=== PATIENT | female | born 1995 | race Caucasian/White ===

== ENCOUNTER 2022-08-29 11:02 | Outpatient (CLI) | payer OTHER, SELFPAY ==
--- NOTE | 2022-08-29 11:15 | CRLHL7_ITS ---
For Patients: As a result of the Cures Act, medical imaging exams and procedure reports are released immediately into your electronic medical record. You may view this report before your referring provider. If you have questions, please contact your health care provider. RIGHT BREAST ULTRASOUND CLINICAL HISTORY: RIGHT breast lump. COMPARISON: None. TECHNIQUE: Real-time ultrasound imaging of RIGHT breast with imaging documentation. FINDINGS: Targeted sonogram to the area of concern in the RIGHT breast at 12 o`clock 4 cm from the nipple was performed. Dense fibroglandular tissue is present. At 10 o`clock 5 cm from the nipple, there is a benign circumscribed fibroadenoma with increase through-transmission measuring 9 x 4 x 8 mm. IMPRESSION: Normal dense fibroglandular tissue and incidental fibroadenoma. No suspicious findings. RECOMMENDATIONS: Clinical follow-up. Age-appropriate screening mammography. BI-RADS Category 2. Benign A lay language report of this examination will be provided to the patient. Dictated by Esdras Watt MD @ 08/29/2022 12:29:27 PM [email or web address] RD/Dictated by: Esdras Watt MD @ 08/29/2022 12:29:00 PM (Electronically Signed)
== END 2022-08-29 11:03 | disposition home or self-care (01) ==
LOC: US 11:06
PROVIDERS: Visit Provider Obstetrics & Gynecology
DX: N63.10 Unspecified lump in the right breast, unspecified quadrant (principal); N64.4 Mastodynia
CPT/HCPCS: 76642

== ENCOUNTER 2022-09-14 08:46 | Outpatient (CLI) | payer OTHER, SELFPAY ==
[2022-09-14 10:50] LABS: Cholesterol* 202 mg/dL (90-199)
[2022-09-14 10:51] LABS: HDL Cholesterol* 77 mg/dL (>=50); LDL Cholesterol Calculated 110 mg/dL (<100); Triglycerides* 76 mg/dL (40-149)
== END 2022-09-14 08:47 | disposition home or self-care (01) ==
PROVIDERS: Visit Provider Obstetrics & Gynecology
DX: Z01.419 Encounter for gynecological examination (general) (routine) without abnormal findings (principal); Z13.6 Encounter for screening for cardiovascular disorders
CPT/HCPCS: 80061

== ENCOUNTER 2022-09-18 07:10 | Outpatient (CLI) | payer OTHER, SELFPAY ==
--- NOTE | 2022-09-18 07:15 | CRLHL7_ITS ---
For Patients: As a result of the Century Cures Act, medical imaging exams and procedure reports are released immediately into your electronic medical record. You may view this report before your referring provider. If you have questions, please contact your health care provider. INDICATION: Missing IUD strings TECHNIQUE: Ultrasound pelvis transvaginal only COMPARISON: None FINDINGS: Uterus: 8.3 centimeter x 2.9 centimeter x 5.2 centimeter. Normal echotexture of the myometrium. No masses. Endometrium: IUD present in the endometrial canal at the level of the fundus. The endometrium is not well seen. Right ovary: 3.0 centimeter x 1.8 centimeter x 2.0 centimeter. No ovarian or adnexal masses. Normal arterial and venous blood flow. Left ovary: 4.5 centimeter x 1.9 centimeter x 1.2 centimeter no ovarian or adnexal masses. Normal arterial and venous blood flow. Cul-de-sac: No significant free fluid. IMPRESSION: IUD present in the endometrial canal at the level of the fundus. Dictated by Esdras Osborn MD @ 09/18/2022 8:53:28 AM (Electronically Signed)
== END 2022-09-18 07:11 | disposition home or self-care (01) ==
PROVIDERS: PCP Family Medicine; Visit Provider Obstetrics & Gynecology
DX: T83.32XA Displacement of intrauterine contraceptive device, initial encounter (principal)
CPT/HCPCS: 76830

== ENCOUNTER 2022-12-12 07:51 | Outpatient (CLI) | payer OTHER, SELFPAY ==
--- NOTE | 2022-12-12 08:00 | CRLHL7_ITS ---
For Patients: As a result of the Century Cures Act, medical imaging exams and procedure reports are released immediately into your electronic medical record. You may view this report before your referring provider. If you have questions, please contact your health care provider. Indication: SINUSITIS. HEAD PRESSURE Technique: Performed without IV contrast Comparison: None available Findings: Frontal sinuses: Clear. Ethmoid sinuses: Clear. Maxillary sinuses: Mild mucosal thickening inferior right maxillary sinus. Clear left maxillary sinus. The maxillary sinus drainage pathways are patent on both sides. Sphenoid sinuses: Clear, including both sphenoethmoidal recesses. Nasal Cavity: Leftward curvature of the anterior nasal septum and posterior right-sided curvature. Posterior right-sided nasal septal spur. Small sindi bullosa right middle turbinate. No polyps. No TMJ abnormalities identified. The visualized portions of the orbits, intracranial contents and upper soft tissue neck are grossly negative. Impression: 1. Mild right maxillary sinus disease. 2. Curvature of the nasal septum with posterior right-sided nasal septal spur and adjacent sindi bullosa in the right middle turbinate. Please note that all CT scans at this facility use dose modulation, iterative reconstruction, and/or weight-based dosing when appropriate to reduce radiation dose to as low as reasonably achievable. Dictated by Esdras Watt MD @ 12/12/2022 11:44:46 AM (Electronically Signed)
== END 2022-12-12 07:52 | disposition home or self-care (01) ==
LOC: CT 07:51
PROVIDERS: PCP Family Medicine; Visit Provider Otolaryngology
DX: J32.9 Chronic sinusitis, unspecified (principal); J32.0 Chronic maxillary sinusitis; J34.2 Deviated nasal septum
CPT/HCPCS: 70486

== ENCOUNTER 2023-02-08 09:43 | Day surgery (SDC) | payer OTHER, SELFPAY ==
[2023-02-08] VITALS (13 sets, daily range): BP systolic 90–116; BP diastolic 54–81; PULSE 67–107; RESP 16–25; TEMP 36.4–37; O2SAT 95–100
[2023-02-08 10:06] LABS: HCG Qualitative* Negative (Negative)
[2023-02-08] MEDS: OXYMETAZOLINE 0.05% NASAL SPRAY 2 SPRAY NOSTRIL-B (10:30)
[2023-02-08] MEDS: LACTATED RINGERS 1000 ML 1,000 ML 100 ML IV ×2 (10:30→11:34)
[2023-02-08] MEDS: SODIUM CHLORIDE 0.9 % (FLUSH) 10 ML SYRINGE IVF (10:31)
[2023-02-08] MEDS: BUPIVACAINE 0.5 %/EPI 1:200K 30 ML INJECTION (10:34)
[2023-02-08] MEDS: COCAINE HCL 4 % 4 ML SOLUTION NOSTRIL-B (11:20)
[2023-02-08] MEDS: MUPIROCIN 1 GM PACKET 1 APPLIC TOPICAL (11:34)
[2023-02-08] MEDS: AYR SALINE NASAL GEL 1 APPLIC NOSTRIL-B (11:35)
[2023-02-08] MEDS: MEPERIDINE 25 MG/ML INJ 12.5 MG IVP (11:48)
--- NOTE | 2023-02-08 11:52 | W.ANESCHARGE ---
Anesthesia Charges Start Date/Time Anesthesia Start Date: 02/08/23 Anesthesia Start Time: 10:58 Stop Date/Time Anesthesia Stop Date: 02/08/23 Anesthesia Stop Time: 11:53
[2023-02-08] MEDS: fentaNYL 100 MCG/2 ML inj 50 MCG IVP (12:25)
--- NOTE | 2023-02-08 12:43 | SUR.PHASEI ---
patient met discharge criteria per anesthesia
--- NOTE | 2023-02-08 12:47 | P.ENTPROC_ITS ---
Procedure Note Date of procedure: 02/08/23 Procedure: Preoperative diagnosis deviated septum nasal obstruction inferior turbinate hypertrophy right middle turbinate sindi bullosa chronic right maxillary sinusitis nasal headache Postoperative diagnosis same Procedure septoplasty, submucous resection inferior turbinates bilateral, endoscopic partial resection right middle turbinate sindi bullosa, endoscopic right maxillary antrostomy with tissue removal Note that image guidance and 0 degree endoscopy was used throughout the procedure Under general endotracheal anesthesia patient was prepped and draped usual fashion nose injected and decongested. A right hemitransfixion incision was made. Left anterior and posterior tunnels were created a vertical incision was made to the cartilage and a right posterior tunnel created. The posterior deflected portions of septal bone removed a large piece was trimmed straightened returns intraseptal space and the hemitransfixion closed with 2 4-0 chromic sutures. The sindi bullosa was partially resected utilizing a 0 degree endoscope by incising along its inferolateral aspect continuing the incision into the hollow portion and crushing the remainder of the turbinate. Then the inferior portion of the uncinate process was taken down exposing natural ostium to maxillary sinus was was enlarged to a 9 mm diameter. Small amount of tissue was removed from the floor of the sinus that was thickened mucosa. A stab incision was made in the anterior head of the right inferior turbinate a tunnel created with a [place] dissector. A conservative anterior submucous resection was performed. The Coblation Wand was used for hemostasis and to cauterize intramurally along the inferior 10%. This was repeated on the left side in identical fashion silastic stents were secured on either side the septum and a Merocel pack was placed on each side of the nose. The patient procedure was taken recovery in satisfactory condition. Blood loss during procedure less than 10 mL. Surgeon: Vini Reyes MD
== END 2023-02-08 13:53 | disposition home or self-care (01) ==
LOC: OR 09:43
PROVIDERS: PCP Family Medicine; Visit Provider Otolaryngology
PROC: (CPT 31231; principal; 2023-02-08 10:45)
DX: J34.2 Deviated nasal septum (principal); J32.0 Chronic maxillary sinusitis; J34.3 Hypertrophy of nasal turbinates; R51.9 Headache, unspecified; J34.89 Other specified disorders of nose and nasal sinuses
CPT/HCPCS: 30520; 30140; 31240; 31267; 00170; 84703; 88305; A9270; J0330; J1100; J2175; J2405; J2704; J3010; J3490; J7120

== ENCOUNTER 2023-06-28 09:16 | Outpatient (CLI) | payer OTHER, SELFPAY | END 2023-06-28 09:17 | disposition home or self-care (01) | PROVIDERS: PCP Family Medicine; Visit Provider Family Medicine | DX: R53.83 Other fatigue (principal); Z13.29 Encounter for screening for other suspected endocrine disorder | CPT/HCPCS: 84443 ==

== ENCOUNTER 2023-10-07 09:30 | Outpatient (CLI) | payer BC, SELFPAY | END 2023-10-07 09:31 | disposition home or self-care (01) | LOC: NFLDREF 10-17 10:34 | PROVIDERS: PCP Family Medicine; Referring Provider Family Medicine; Visit Provider Obstetrics & Gynecology | DX: E78.00 Pure hypercholesterolemia, unspecified (principal) | CPT/HCPCS: 80061 ==

== ENCOUNTER 2024-02-19 08:54 | Outpatient (CLI) | payer BC, SELFPAY ==
--- NOTE | 2024-02-19 09:00 | CRLHL7_ITS ---
For Patients: As a result of the Century Cures Act, medical imaging exams and procedure reports are released immediately into your electronic medical record. You may view this report before your referring provider. If you have questions, please contact your health care provider. Indication: Chronic sinusitis Technique: Noncontrast CT of the paranasal sinuses. Coronal and sagittal reformats. Bone and soft tissue algorithms. Comparison: CT sinus report 12/12/2022 Findings: Frontal sinuses: The frontal sinuses and frontal recesses are clear. Ethmoid air cells: The ethmoid air cells are clear. Sphenoid sinuses: The sphenoid sinuses and sphenoethmoidal recesses are clear. Maxillary sinuses: Minimal mucosal thickening at the left inferior maxillary sinus. Small mucous retention cyst at the right inferior maxillary sinus. Clear ostiomeatal units.. Nasal cavity: Minimal leftward nasal septal deviation. No paradoxical turbinates. Small right middle sindi lamella. Osseous structures: Orbits and intracranial structures are unremarkable for technique. Temporomandibular joints appear anatomic and symmetric. Mastoid air cells are clear. No suspicious periapical lucencies. IMPRESSION: 1. Minimal mucosal thickening at the left inferior maxillary sinus. Small mucous retention cyst at the right inferior maxillary sinus. 2. Otherwise, grossly clear sinonasal cavities. Minimal leftward nasal septal deviation. Please note that all CT scans at this facility use dose modulation, iterative reconstruction, and/or weight-based dosing when appropriate to reduce radiation dose to as low as reasonably achievable. Dictated by Nalini Irvin MD @ 02/20/2024 12:39:57 PM (Electronically Signed)
== END 2024-02-19 08:55 | disposition home or self-care (01) ==
LOC: CT 08:55
PROVIDERS: PCP Family Medicine; Visit Provider Otolaryngology
DX: J32.9 Chronic sinusitis, unspecified (principal); J32.0 Chronic maxillary sinusitis; J34.2 Deviated nasal septum
CPT/HCPCS: 70486

== ENCOUNTER 2024-06-24 10:28 | Outpatient (CLI) | payer BC, SELFPAY ==
--- NOTE | 2024-06-24 10:45 | CRLHL7_ITS ---
For Patients: As a result of the Century Cures Act, medical imaging exams and procedure reports are released immediately into your electronic medical record. You may view this report before your referring provider. If you have questions, please contact your health care provider. INDICATION: Right lower quadrant pelvic pain. History of ovarian cysts. COMPARISON: Report of the CT of the abdomen and pelvis from 12/03/2021. FINDINGS: Transvaginal and transabdominal ultrasound examination of the female pelvis was performed. Initial examination is performed with transabdominal technique and transvaginal technique is used for better visualization of the pelvic structures. The uterus is anteverted with no evidence of mass. It measures 5.8 x 3.4 x 4.9 cm. The endometrial lining is normal in thickness at 1 mm. An intrauterine device is in satisfactory position the superior fundus. The right ovary is normal in appearance. The left ovary has a small complex cyst containing low-level internal echoes measuring 1.9 x 1.2 x 1.8 centimeters, of no clinical concern. The ovaries are normal in size, the right measuring 3.2 x 1.6 x 2.3 cm and the left measuring 3.4 x 1.8 x 2.2 cm. There is normal color and pulse doppler flow in both ovaries. There is no sign of free fluid in the pelvis. IMPRESSION: 1. Small complex cyst in the left ovary, probably a hemorrhagic cyst, requiring no further follow-up. 2. Continued satisfactory positioning of an intrauterine device. 3. Otherwise normal ultrasound examination of the female pelvis using transvaginal and transabdominal technique. Dictated by Erlin Fu MD @ 06/24/2024 11:28:54 PM (Electronically Signed)
== END 2024-06-24 10:29 | disposition home or self-care (01) ==
LOC: US 10:28
PROVIDERS: PCP Family Medicine; Visit Provider Obstetrics & Gynecology
DX: R10.31 Right lower quadrant pain (principal); N83.292 Other ovarian cyst, left side
CPT/HCPCS: 76830; 76856; 93976

== ENCOUNTER 2024-08-03 10:11 | Outpatient (CLI) | payer BC, SELFPAY | END 2024-08-03 10:12 | disposition home or self-care (01) | LOC: LKVREF 10:13 | PROVIDERS: PCP Family Medicine; Visit Provider Family Medicine | DX: Z01.818 Encounter for other preprocedural examination (principal) | CPT/HCPCS: 80048 ==

== ENCOUNTER 2024-08-21 08:50 | Day surgery (SDC) | payer BC, SELFPAY ==
--- OUTSIDE RECORDS SUMMARY | 2024-08-11 13:23 | XMS_ITS | Patient Health Record ---
Author Organization [facility] Address [address] [facility] [address] [place] [address] Care Team Providers Care Composite Assembler Name Role Phone Donna Morejon MD Primary Care Provider DANY CARBAJAL, CHELE Inman [phone] Reason For Referral No Information Social History Tobacco Use: Social History Observation Description Date Details (start date - stop date) Never Smoker NA - NA SMOKING STATUS 13Y AND OLDER Question Answer Notes Are you a: Non-Smoker Problems Problem Type SNOMED Code ICD Code Onset Dates Problem Status W/U Status Risk Notes Problem Urinary tract infection (54430328) UTI (599.0) Active confirmed Problem Constipation (67370020) Constipation (564.00) Active confirmed Problem 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 (713883609144794) VU Reflux (593.70) Active confirmed Problem Dysfunctional voiding (450089441) Dysfunctional Voiding (596.59) Active confirmed Plan Of Treatment No Information Insurance Providers Payer Name Payer Address Payer Phone Subscriber Number Group Number Insured Name Patient Relationship to Insured Coverage Start Date Coverage End Date [facility] [address] [place] [address] [id number] Rickie Neves Child - Insured has Financial Responsibility Medical (General) History Medical History History ICD Code Recurrent UTI's Bilateral VUR Dysfunctional voiding Surgical History Surgery Date(Month/Year) Bilteral ureteral neocystostomy (Miguel) 06/12 Tubes in ears Foot and ankle surgery
[2024-08-21] VITALS (12 sets, daily range): BP systolic 96–109; BP diastolic 57–76; PULSE 68–84; RESP 16–20; TEMP 36.7–37.3; O2SAT 92–97; BMI 23.1
--- OUTSIDE RECORDS SUMMARY | 2024-08-21 08:54 | XMS_ITS | Patient Health Record ---
Author Organization [facility] [place] [facility] Address [address] [facility] [address] [place] [address] Care Team Providers Care Armature Winder Name Role Phone Donna Morejon MD Primary Care Provider DANY CARBAJAL, CHELE [facility] Reason For Referral No Information Social History Tobacco Use: Social History Observation Description Date Details (start date - stop date) Never Smoker NA - NA SMOKING STATUS 13Y AND OLDER Question Answer Notes Are you a: Non-Smoker Problems Problem Type SNOMED Code ICD Code Onset Dates Problem Status W/U Status Risk Notes Problem Urinary tract infection (88011135) UTI (599.0) Active confirmed Problem Constipation (11895403) Constipation (564.00) Active confirmed Problem 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 (324357267649839) VU Reflux (593.70) Active confirmed Problem Dysfunctional voiding (517383868) Dysfunctional Voiding (596.59) Active confirmed Plan Of Treatment No Information Insurance Providers Payer Name Payer Address Payer Phone Subscriber Number Group Number Insured Name Patient Relationship to Insured Coverage Start Date Coverage End Date [facility] [address] [place] [address] [id number] Rickie Neves Child - Insured has Financial Responsibility Medical (General) History Medical History History ICD Code Recurrent UTI's Bilateral VUR Dysfunctional voiding Surgical History Surgery Date(Month/Year) Bilteral ureteral neocystostomy (Miguel) 06/12 Tubes in ears Foot and ankle surgery
[2024-08-21 09:19] LABS: Ur HCG Qualitative* Negative (Negative)
[2024-08-21] MEDS: LACTATED RINGERS 1000 ML 1,000 ML 100 ML IV (09:44)
[2024-08-21] MEDS: SODIUM CHLORIDE 0.9 % (FLUSH) 10 ML SYRINGE IVF (10:00)
[2024-08-21] MEDS: OXYMETAZOLINE (AFRIN) SOAK 1 EACH TOPICAL (10:00)
[2024-08-21] MEDS: MUPIROCIN 1 GM PACKET 1 APPLIC TOPICAL (11:11)
[2024-08-21] MEDS: COCAINE HCL 4 % 4 ML SOLUTION NOSTRIL-B (11:38)
[2024-08-21] MEDS: BUPIVACAINE 0.5%/EPINEPHRINE 0.9 MG (30.9 ML) INJECTION (11:38)
[2024-08-21] MEDS: AYR SALINE NASAL GEL 1 APPLIC NOSTRIL-B (11:55)
--- NOTE | 2024-08-21 12:01 | P.ANES_ITS ---
Anesthesia Charges Start Date/Time Anesthesia Start Date: 08/21/24 Anesthesia Start Time: 11:19 Stop Date/Time Anesthesia Stop Date: 08/21/24 Anesthesia Stop Time: 12:03 Coding CPT Codes CPT Codes: ANESTH NOSE/SINUS SURGERY - 82946 ([id number]) P1 - NORMAL HEALTHY PATIENT, QK - [place] 2-4 CNCRNT ANES PROC, QX - TRANSFUSION NURSE SVNorma W/ MED DIRECTION
--- NOTE | 2024-08-21 12:01 | W.ANESCHARGE ---
Anesthesia Charges Start Date/Time Anesthesia Start Date: 08/21/24 Anesthesia Start Time: 11:19 Stop Date/Time Anesthesia Stop Date: 08/21/24 Anesthesia Stop Time: 12:03 Coding CPT Codes CPT Codes: ANESTH NOSE/SINUS SURGERY - 66399 ([id number]) P1 - NORMAL HEALTHY PATIENT, QK - FLIGHT ATTENDANT 2-4 CNCRNT ANES PROC, QX - HEAD OF TRAINING AND DEVELOPMENT SVNorma W/ MED DIRECTION
--- NOTE | 2024-08-21 12:30 | P.ANES_ITS ---
Anesthesia Charges Start Date/Time Anesthesia Start Date: 08/21/24 Anesthesia Start Time: 11:19 Stop Date/Time Anesthesia Stop Date: 08/21/24 Anesthesia Stop Time: 12:03 Coding CPT Codes CPT Codes: ANESTH NOSE/SINUS SURGERY - 67912 ([id number]) QK - TRACK HELPER 2-4 CNCRNT ANES PROC, QX - EMPLOYEE RELATIONS ADVISOR SVC W/ MD MED DIRECTION, P2 - PATIENT W/MILD SYST DISEASE
--- NOTE | 2024-08-21 12:30 | W.ANESCHARGE ---
Anesthesia Charges Start Date/Time Anesthesia Start Date: 08/21/24 Anesthesia Start Time: 11:19 Stop Date/Time Anesthesia Stop Date: 08/21/24 Anesthesia Stop Time: 12:03 Coding CPT Codes CPT Codes: ANESTH NOSE/SINUS SURGERY - 87281 ([id number]) QK - SOCIAL WORK PROFESSOR 2-4 CNCRNT ANES PROC, QX - BANKRUPTCY LAW SPECIALIST SVC W/ MD MED DIRECTION, P2 - PATIENT W/MILD SYST DISEASE
--- NOTE | 2024-08-21 12:54 | W.PM.ENTPROC ---
Procedure Note Date of procedure: 08/21/24 Procedure: Preoperative diagnosis recurrent left maxillary rhinosinusitis, chronic left maxillary rhinosinusitis, nasal obstruction, bilateral inferior turbinate hypertrophy Postoperative diagnosis same Procedure endoscopic left maxillary antrostomy with tissue removal, submucous partial resection inferior turbinates bilateral Under general trach anesthesia patient was prepped draped usual fashion. Image guidance was utilized and registered well. A stab incision was made in the anterior of the right inferior turbinate a tunnel created with a [place] dissector. The sindi bone was outfractured a conservative anterior submucous resection performed. The Coblation was used for hemostasis and to cauterize intramurally along the inferior 10%. This was repeated the left side in identical fashion. The left middle turbinate was crushed with the Henry forceps. The inferior quarter of the uncinate process on the left was taken down and 9 mm diameter antrostomy was created. Polypoid tissue was removed from the entrances sinus as well as the floor of the sinus. Merocel packing was placed on each side of the nose. The patient procedure well was taken recovery in satisfactory condition blood loss less than 10 mL. Surgeon: Vini Reyes MD
[2024-08-21] MEDS: ACETAMINOPHEN 500 MG TABLET PO (13:14)
[2024-08-21] MEDS: IBUPROFEN 400 MG TABLET PO (13:15)
== END 2024-08-21 13:54 | disposition home or self-care (01) ==
PROVIDERS: Anesthesiology; PCP Family Medicine; Visit Provider Otolaryngology
PROC: (CPT 31231; principal; 2024-08-21 10:30)
DX: J32.0 Chronic maxillary sinusitis (principal); J34.3 Hypertrophy of nasal turbinates; J34.89 Other specified disorders of nose and nasal sinuses
CPT/HCPCS: 31267; 30140; 00160; 81025; 88305; A9270; J0330; J1100; J1630; J2250; J2405; J2704; J3010; J7120

== ENCOUNTER 2024-11-27 10:57 | Outpatient (CLI) | payer BC, SELFPAY | END 2024-11-27 10:58 | disposition home or self-care (01) | LOC: NFLDREF 11-28 06:57 | PROVIDERS: PCP Family Medicine; Referring Provider Family Medicine; Visit Provider Obstetrics & Gynecology | DX: Z13.6 Encounter for screening for cardiovascular disorders (principal) | CPT/HCPCS: 80061 ==